=== PATIENT | male | born 1990 | race Asian ===

== ENCOUNTER 2019-02-18 19:17 | Emergency (ER) | payer OTHER ==
[~2019-02-18] VITALS: Ht 154.9 cm; Wt 65.4 kg
[2019-02-18 19:33] VITALS: BP 144/80; PULSE 84; RESP 18; Ht 154.9 cm; Wt 65.4 kg
--- NOTE | 2019-02-18 20:23 | ERD ---
ER Documentation Chief Complaint Chief Complaint PT STATES POSSIBLE GONORRHEA, HX OF, C/O ON AND OF PENILE PAIN HPI This is a 28-year-old male who presents to emerge department with complaints of possible gonorrhea. Stated that he saw a yellowish/creamy discharge from his penis today. Stated that he is sexually active with multiple male partners. Stated that he does not receive anal sex but does do oral and anal to partner. Patient is requesting to be treated for gonorrhea. Stated that he feels like he has a gonorrhea. Denies headache, head injury, loss of consciousness, dizziness, neck pain, neck stiffness, throat pain, difficulty swallowing, difficulty breathing lying flat, shoulder pain, chest pain, back pain, abdominal pain, nausea, vomiting, constipation, diarrhea, testicular trauma, loss of bowel and bladder control, trauma, injury, falls, difficulty walking due to pain, numbness or tingling sensation, calf pain, recent travel, recent major surgery in the last 3 weeks, calf pain, recent long travel, recent exposure to any illness, recent antibiotic use in the last 3 months, fever, chills, seizures. Past medical history: Surgical history: Social: Denies smoking, use of alcoholic beverages, use of illegal drugs. ROS All systems reviewed and are negative except as per history of present illness. Medications Home Meds Active Scripts Ibuprofen* (Motrin*) 600 Mg Tab, 600 MG PO Q6H PRN for PAIN AND OR ELEVATED TEMP, #30 TAB Prov:GWENDOLYN WILLIAM 02/18/19 Allergies Allergies: Coded Allergies: No Known Allergy (Unverified , 02/18/19) PMhx/Soc Medical and Surgical Hx: pt denies Medical Hx, pt denies Surgical Hx Hx Alcohol Use: No Hx Substance Use: No Hx Tobacco Use: No Smoking Status: Never smoker Physical Exam Vitals Physical Exam Const: No acute distress Head: Atraumatic Eyes: Normal Conjunctiva ENT: Normal External Ears, Nose and Mouth. Neck: Full range of motion. No meningismus. Resp: Clear to auscultation bilaterally Cardio: Regular rate and rhythm, no murmurs Abd: Soft, non tender, non distended. Normal bowel sounds. Negative Hanna sign. Negative Alisia sign (heel jar test). Negative psoas) negative Rovsing sign. No CVA tenderness. : No penile swelling. No penile lesions/rashes. No penile bleeding. No discharge at this time. Scrotal/testicular area: No swelling. No discoloration. No tenderness. Bilateral inguinal area: No swelling/tenderness/bulging/discoloration. Skin: No petechiae or rashes Back: No midline or flank tenderness Ext: No cyanosis, or edema Neur: Awake and alert. No neurological deficits. Psych: Normal Mood and Affect Results 24 hrs Laboratory Tests Test 02/18/19 20:21 Urine Color YELLOW Urine Clarity CLOUDY Urine pH 6.0 Urine Specific Rodney 1.024 Urine Ketones NEGATIVE mg/dL Urine Nitrite NEGATIVE mg/dL Urine Bilirubin NEGATIVE mg/dL Urine Urobilinogen 1+ mg/dL Urine Leukocyte Esterase 1+ Rocio/ul Urine Microscopic RBC 2 /HPF Urine Microscopic WBC 62 /HPF Urine Amorphous Crystals FEW /HPF Urine Bacteria FEW /HPF Urine Mucus FEW /HPF Urine Hemoglobin NEGATIVE mg/dL Urine Glucose NEGATIVE mg/dL Urine Total Protein NEGATIVE mg/dl Chlamydia trachomatis RNA (TMA) NOT DETECTED Chlamydia/GC Comment SEE NOTE Neisseria gonorrhoeae RNA (TMA) DETECTED Current Medications Medications Dose Sig/Liang Start Time Status Last (Trade) Ordered Route PRN Stop Time Admin Dose Reason Admin Ceftriaxone 250 mg ONCE ONCE 02/18/19 DC 02/18/19 Sodium IM 20:30 20:35 (Rocephin) 02/18/19 20:31 1,000 mg ONCE ONCE 02/18/19 DC 02/18/19 Azithromycin PO 20:30 20:35 (Zithromax) 02/18/19 20:31 Procedures/MDM Diagnostic tests: Urinalysis: Culture urine: Sent. Gonorrhea and Chlamydia: Sent. Treatment: Ceftriaxone IM. Azithromycin p.o. Re-evaluation: No reactions to antibiotics given. Denies abdominal pain, penile pain, scrotal pain. Stated that he feels much better at this time and that he is ready to go home. Differential diagnosis I have low suspicion for testicular torsion, inguinal hernia, sepsis, deep space infection, pyelonephritis, acute abdomen. Final diagnosis: STD symptoms. Possible gonorrhea. Prescription: Motrin. Follow-up with PCP in the next 24-48 hours. Come back here in the emergency department for any new symptoms or any worsening symptoms. All questions and concerns were answered. Patient and family members verbalized understanding and agreed with plan of care. Hemodynamically stable on discharge. Departure Diagnosis: Primary Impression: Gonorrhea Additional Impression: STD (male) Condition: Stable Additional Instructions: Follow-up with PCP in the next 24-48 hours. Come back here in the emergency department for any new symptoms or any worsening symptoms. GWENDOLYN WILLIAM Feb 18, 2019 20:23
[2019-02-18] MEDS ORDERED: IBUP-1542 PO (20:26)
[2019-02-18] MEDS ORDERED: AZITHROMYCIN 500 MG TAB PO ONE (20:30)
[2019-02-18] MEDS ORDERED: CEFTRIAXONE 250 MG INJ IM ONE (20:30)
== END 2019-02-18 20:57 | disposition home or self-care (01) ==
LOC: FTE 19:17
DX: A54.9 Gonococcal infection, unspecified (principal); A64 Unspecified sexually transmitted disease
CPT/HCPCS: 81001; 87086; 87591; 96372; 99284; J0696

== ENCOUNTER 2019-04-28 00:11 | Emergency (ER) | payer OTHER ==
[~2019-04-28] VITALS: Ht 180.3 cm; Wt 65.1 kg
[~2019-04-28 00:11] MED LIST: IBUP-1542 PO
[2019-04-28 00:14] VITALS: BP 137/91; PULSE 86; RESP 16; Ht 180.3 cm; Wt 65.1 kg
[2019-04-28] MEDS ORDERED: CEFTRIAXONE 250 MG INJ IM ONE (01:00)
[2019-04-28] MEDS ORDERED: AZITHROMYCIN 500 MG TAB PO ONE (01:00)
== END 2019-04-28 01:27 | disposition home or self-care (01) ==
LOC: FTE 00:11
DX: N34.2 Other urethritis (principal)
CPT/HCPCS: 87591; 96372; 99284; J0696